=== PATIENT | male | born 1940 | race Caucasian/White ===

== ENCOUNTER 2020-05-18 00:13 | Outpatient (CLI) | payer MEDICARE, SELFPAY ==
[2020-05-18 19:45] LABS: SARS-CoV-2 RNA PCR Negative
== END 2020-05-18 00:14 | disposition home or self-care (01) ==
LOC: ANHCOVIDDT 00:14
PROVIDERS: PCP Family Medicine; Visit Provider Plastic Surgery
DX: Z01.818 Encounter for other preprocedural examination (principal); Z11.59 Encounter for screening for other viral diseases
CPT/HCPCS: 87635; C9803; U0003

== ENCOUNTER 2020-05-20 03:26 | Day surgery (SDC) | payer MEDICARE, SELFPAY ==
[2020-05-13 14:08] VITALS: BMI 30.6
--- NOTE | 2020-05-19 20:39 | HP_ITS ---
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 HISTORY: The patient is an 79-year-old. He is a patient of Dr. Jeffery Guzman and was sent for evaluation of this ulcerating neoplasm on the posterior ear out of site on the right, it is on the helix. It is approximately 13 mm in diameter. The patient is not sure how long it has been present. There is no sign of infection. He is aware that he will need excision and would utilize frozen section and may be necessary to utilize a full-thickness skin graft to close this wound. ALLERGIES: HE HAS NO KNOWN ALLERGIES TO MEDICATIONS. CURRENT MEDICATIONS: He currently takes: 1. Vitamin B12. 2. Vitamin D3. 3. Warfarin. 4. Calcitriol. 5. Amlodipine. 6. Metoprolol. 7. Glimepiride. PAST SURGICAL HISTORY: Prior surgeries include a cholecystectomy around 2004, some back surgery in 2017. He is followed for kidney disease by Dr. Mcguire. He has type 2 diabetes. He says it is well controlled. FAMILY HISTORY: Noncontributory. SOCIAL HISTORY: He lives in [place]. Does not list a spouse. PHYSICAL EXAMINATION: VITAL SIGNS: His height is 5 feet 8 inches, weight 208. GENERAL: He is alert and informative adult male. HEENT: Reveals the lesion as noted on the medial or posterior aspect of the right helix. No palpable adenopathy. CHEST: Clear to auscultation. HEART: Regular rate and rhythm by palpation. ABDOMEN: Soft, nontender. EXTREMITIES: Normal. 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 PLAN: Excision with frozen section and possible full-thickness skin graft. The patient prefers local anesthetic. [facility]
[2020-05-20] VITALS (16 sets, daily range): BP systolic 142–180; BP diastolic 69–85; PULSE 81–98; RESP 14–18; TEMP 36.6; O2SAT 93–100
--- NOTE | 2020-05-20 07:24 | WPDHPUPDATE1 ---
History and Physical Update Update Date/Time: 05/20/20 07:24 History and Physical has been reviewed, including an updated exam of the patient. There are NO changes in the patient's condition. Risks, benefits, and alternatives have been discussed and questions answered. Patient agrees to proceed with procedure.
[2020-05-20] MEDS: LACTATED RINGERS 500 ML 50 ML IV CONT (07:36)
[2020-05-20] MEDS: ceFAZolin 2 GM/D5W 50 ML 2 GM/50 ML BAG IVPB (07:36)
[2020-05-20] MEDS: LIDO 1%/EPINEPHRINE 1:100,000 20 ML VIAL INFILTRATE (08:02)
--- NOTE | 2020-05-20 08:14 | SUR.OPER ---
Frozen section sent with vidal Vela and received in pathology by Pati
--- NOTE | 2020-05-20 16:49 | PM.PROC ---
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 He was taken to the operating room and placed supine on the operating table. a time-out was held and confirmed. The right side of his Face and neck area were prepped and draped in the usual fashion. He had been given 2 g of Ancef. Local anesthetic was infiltrated to anesthetize the upper half of the ear. A full-thickness skin excision was carried out around the marked area. The excision was carried down to perichondrium. It was obvious in doing so that the tumor was transected. The cartilage however did not appear to be deformed in any way. The specimen was marked for orientation with a suture placed nearest the rim of the helix for 12 o'clock. The pathologist gave us the diagnosis of basal cell carcinoma and indicated that perichondrium was positive and skin near the 12:00 p.m. and 8-9 o'clock positions were also positive. additional samples were taken. The new 9:00 a.m. margin was marked with a suture and the new 12 o'clock position marked with a suture. These were sent for permanent section. Cartilage comprising the obviously affected region, approximately 1/2 the area of exposed cartilage was sent for frozen section. the pathologist revealed that these margins were likely free of tumor but he wanted to defer to permanent section. We went ahead to harvest a full-thickness skin graft from the upper neck near the ear and that donor site was closed with intradermal 4-0 Vicryl and the skin closed with glue. The graft was defatted. It was inset and tailored to fill the wound without deforming the ear. Quilting suture was were placed at 6 positions through the graft. Antibiotic ointment and an ear cup were applied as dressing. He was discharged from the operating room in stable condition with instructions in wound care and follow-up. He has a prescription for tramadol. He has a prescription for Keflex for 4 days. Anesthesia: local Surgeon: Mario Molina MD
== END 2020-05-20 10:35 | disposition home or self-care (01) ==
PROVIDERS: PCP Family Medicine; Visit Provider Plastic Surgery
PROC: (CPT 11643; principal; 2020-05-20 07:30)
DX: C44.212 Basal cell carcinoma of skin of right ear and external auricular canal (principal); N28.9 Disorder of kidney and ureter, unspecified; E11.9 Type 2 diabetes mellitus without complications; Z79.01 Long term (current) use of anticoagulants
CPT/HCPCS: 11643; 15260; 88305; 88331; 88332; A9270; J0690; J7120